=== PATIENT | female | born 1980 | race Hispanic/Latino ===

== ENCOUNTER → 2024-10-29 | Outpatient (CLI) | payer BC ==
--- NOTE | 2024-10-29 16:39 | HMCIMG ---
US THYROID/NECK HISTORY: Left neck lump COMPARISON: None TECHNIQUE: Thyroid ultrasound study was performed. FINDINGS: Right thyroid lobe measures 3.8 x 1.3 x 1.5 cm. Left thyroid lobe measures 3.6 x 1.5 x 1.4 cm. No discrete thyroid nodule is seen. Over the region of interest in the left neck, no mass lesion is seen. IMPRESSION: 1. No discrete thyroid nodule is seen.
== END | disposition home or self-care (01) ==
LOC: RAH 15:10
PROVIDERS: ATTEND Nurse Practitioner Family
DX: R22.1 Localized swelling, mass and lump, neck (principal)
CPT/HCPCS: 76536